=== PATIENT | female | born 1955 | race Caucasian/White ===

== ENCOUNTER 2018-07-23 11:29 | Emergency (ER) | payer OTHER ==
--- NOTE | 2018-07-23 12:18 | ED ---
HPI Chest Pain - HPI Summary HPI Summary: Patient is a 62 y/o F presenting to ED with complaints of chest pain, dizziness , and left arm pain since this morning. Gracie, patient's friend, is in the room. Chest pain is described as a fullness. She states that she will get this sensation when she drinks caffeine. Patient states that she has not had caffeine in 1.5 years, but has been drinking tea intermittently. She notes that she had "the wrong type of caffeine" yesterday morning and had an episode of chest pain. She states that her friend recommended green tea to her and she decided to try it. Sxs of chest pain, dizziness began afterward, yesterday morning, at 0900, lasted until 2200. This resolved by itself. Patient does note that she took melatonin last night to sleep. This morning, she states that she had mint tea (without caffeine), began to have chest pain once more, but this time with dizziness that she describes as feeling near syncopal and right arm pain. However, she notes that muscular right arm pain shifted from right arm to left arm. She states that she did some snow shoveling a few days ago with her right arm especially, but the right arm pain didn't start until 2 days after the shoeveling. With the left arm pain, and the chest pain, pt became concerned and presented to the ED. In the room, she rates pain at 7-8/10 originally, currently has lessened to 3/10. No medications taken [employer]. Patient denies fever, SOB, cough. She notes that 10/07/11, she had an abnormal EKG, and Dr. Mckeon carried out nondiagnositc chemical stress test as she was pre-op hip surgery. (Report reviewed in [facility] only. Dr. Mckeon's office records not available to me via [facility] EMR). She claims that she was told that results were ambiguous. No Hx of blood clots. States she has had some right calf pain intermittently over the past few days but none now. No Hx of HTN, diabetes, HLD , thyroid problems. PSHx of hip surgery. Patient denies home medications. FMHx of CA in mother. She states that she has never smoked cigarettes. Dr. Galeas is PCP. On triage, pain is rated 2/10, nothing is noted to aggravate/alleviate Sx. Home medications and allergies are reviewed. Vitals are pulse 67, O2 100, BP measures were 117/74, 86/64, and 116/64. Home Medications NK [No Home Medications Reported] 07/23/18 [History Confirmed 07/23/18] Allergies Allergy/AdvReac Type Severity Reaction Status Date / Time No Known Allergies Allergy Verified 07/23/18 11:33 - History of Current Complaint Chief Complaint: EDChestPainROMI Time Seen by Provider: 07/23/18 11:50 Hx Obtained From: Patient, Other: - friend Gracie is in the room with pt. Onset/Duration: Started Hours Ago - 2nd episode onset this morning, Started Days Ago - first episode yesterday, Atraumatic, Still Present Timing: Intermittent - first episode from 0900 to 2200, second episode started this morning; right calf pain intermittently over the past few days but none now. Right arm pain for a few days, with snow shoveling a few days before that. Left arm pain started with chest pain today., Lasting Hours - first episode from 0900 to 2200, second episode of chest pain this morning; left arm pain since this morning, Lasting Days - right calf pain intermittently over the past few days, right arm pain Initial Severity: Severe - 7-8/10 initially Current Severity: Mild - 3/10 in room Pain Intensity: 3 Pain Scale Used: 0-10 Numeric - 3/10 Chest Pain Location: Mid Sternal, Left Anterior Chest Pain Radiates: Yes Chest Pain Radiates To:: Arm - left arm Character: Other: - fullness Aggravating Factor(s): Nothing Alleviating Factor(s): Nothing Associated Signs and Symptoms: Positive: Chest Pain, Dizziness - near syncopal, Calf Pain/Swelling - right calf pain intermittently over the past few days, Other: - POSITIVE - RIGHT ARM PAIN THAT HAS MOSTLY RESOLVED, LEFT ARM PAIN. Negative: Shortness of Breath, Fever, Cough, Productive Cough, Nonproductive Cough - Allergy/Home Medications Allergies/Adverse Reactions: Allergies Allergy/AdvReac Type Severity Reaction Status Date / Time No Known Allergies Allergy Verified 07/23/18 11:33 Home Medications: Home Medications NK [No Home Medications Reported] 07/23/18 [History Confirmed 07/23/18] PMH/Surg Hx/FS Hx/Imm Hx Previously Healthy: Yes Endocrine/Hematology History: Denies: Hx Diabetes, Hx Thyroid Disease Cardiovascular History: Denies: Hx Hypercholesterolemia, Hx Hypertension Sensory History: Denies: Hx Legally Blind, Hx Deafness Opthamlomology History: Denies: Hx Legally Blind EENT History: Denies: Hx Deafness - Surgical History Surgery Procedure, Year, and Place: hip surgery Infectious Disease History: No Infectious Disease History: Denies: Traveled Outside the [place] in Last 30 Days - Family History Known Family History: Positive: Cardiac Disease - father and brothers with prolapsed mitral value , Other - CA in mother - Social History Occupation: Employed Full-time Alcohol Use: Occasionally Substance Use Type: Reports: None Smoking Status (MU): Never Smoked Tobacco Review of Systems Negative: Fever Positive: Chest Pain Negative: Shortness Of Breath, Cough Gastrointestinal: Negative Positive: no symptoms reported Positive: Other - POSITIVE - RIGHT CALF PAIN, RIGHT ARM PAIN SINCE RESOLVED, LEFT ARM PAIN Skin: Negative Neurological: Other - POSITIVE - DIZZINESS CHARACTERIZED NEAR SYNCOPAL Psychological: Normal All Other Systems Reviewed And Are Negative: Yes Physical Exam - Summary Physical Exam Summary: Appearance: Well-appearing, mild pain distress, well-nourished Skin: Warm, color reflects adequate perfusion, dry Head: Normal Head/Face inspection, atraumatic Eyes: Conjunctiva clear ENT: Normal inspection Neck: Supple, no nodes, no JVD Respiratory: Lungs clear, normal breath sounds, no respiratory distress Cardio: RRR, No murmur, pulses normal, brisk capillary refill, no murmur, rub or gallop Abdomen: Soft, nontender, nondistended, no masses Bowel sounds: Present Musculoskeletal: Strength Intact/ROM intact, no calf tenderness, no edema. Right and left arms with normal exams. No swelling, redness. Pain is not reproducible on palpation. Distal pusles, sensation intact. Psychological: Normal Neuro: Alert, muscle tone normal, no focal deficit Triage Information Reviewed: Yes Vital Signs On Initial Exam: Initial Vitals Temp Pulse Resp BP Pulse Ox 97.9 F 68 16 125/88 100 07/23/18 11:30 07/23/18 11:30 07/23/18 11:30 07/23/18 11:30 07/23/18 11:30 Vital Signs Reviewed: Yes Diagnostics - Vital Signs Vital Signs Temp Pulse Resp BP Pulse Ox 01/24/19 11:53 96 07/23/18 11:52 64 20 117/74 96 07/23/18 11:43 62 22 99 07/23/18 11:30 97.9 F 68 16 125/88 100 - Laboratory Result Diagrams: 07/23/18 12:14 07/23/18 12:14 Lab Statement: Any lab studies that have been ordered have been reviewed, and results considered in the medical decision making process. - Radiology CXR Radiology Interpretation Completed By: Radiologist Summary of Radiographic Findings: CXR IMPRESSION: NO ACTIVE CARDIOPULMONARY DISEASE. THIS REPORT WAS REVIEWED BY ED PHYSICIAN. - CT CTA CHEST CT Interpretation Completed By: Radiologist Summary of CT Findings: CTA CHEST IMPRESSION: NO PULMONARY ARTERIAL FILLING DEFECT TO SUGGEST PULMONARY EMBOLISM. THIS REPORT WAS REVIEWED BY ED PHYSICIAN. - EKG 1210 Cardiac Rate: NL - rate of 61 BPM EKG Rhythm: Sinus Rhythm ST Segment: Non-Specific Ectopy: None EKG Comparison: Other - no priors to compare with. Summary of EKG Findings: EKG at 1210 reveals NSR with rate of 61 BPM, nml AVIVCT , nml QTc, left axis (-21). No acute changes. No priors to compare. Re-Evaluation - Re-Evaluation First Eval Re-Evaluation Time: 14:13 Change: Unchanged Comment: Due to chest discomfort and elevated d-dimer of 277, CTA chest will be done. This was discussed with patient who is agreeable. Second Eval Re-Evaluation Time: 15:24 Change: Improved Comment: Results of CTA discussed, patient will be discharged to home, she is agreeable with this. Pt is pain free at this time. Chest Pain Course/Dx - Course Course Of Treatment: Patient is a 62 y/o F presenting to ED with complaints of chest pain, dizziness, and left arm pain that started this morning. Gracie, patient's friend, in the room. Chest pain is described as a fullness. She states that she will get this sensation when she drinks caffeine. Patient states that she has not had caffeine in 1.5 years, but has been drinking tea intermittently. She notes that she had "the wrong type of caffeine" yest morning and had an episode of chest pain. She states that her friend recommended green tea to her and she decided to try it. Sx onset afterwards yesterday morning at 0900, lasted until 2200. This resolved by itself, patient does note that she took melatonin. This morning, she states that she had mint tea without caffeine, and she began to have chest pain once more, but this time with dizziness that she describes as feeling near syncopal and right arm pain. However, she notes that muscular right arm pain shifted from right arm to left arm. In the room, she rates 7-8/10 originally, currently has lessened to 3/10. No medications taken [employer]. Patient denies fever, SOB, cough. She notes that , she had an abnormal EKG, Dr. Mckeon carried out nondiagnositc chemical stress test as she was pre-op hip surgery. She claims that she was told that results were ambiguous. No Hx of blood clots, she has had some right calf pain intermittently over the past few days. No Hx of HTN, diabetes, HLD, thyorid problems. PSHx of hip surgery. Patient denies home medications. FMHx of CA in mother. She states that she has never smoked cigarettes. On physical exam, mild pain distress is noted. Heart and lung exams normal. No calf tenderness, normal neurologic exam. Bilateral arm exams normal. EKG at 1210 reveals NSR with rate of 61 BPM, nml AVIVCT, nml QTc, left axis (-21). No acute changes. No priors to compare. CXR IMPRESSION: NO ACTIVE CARDIOPULMONARY DISEASE. Labs showed BUN/creatinine ratio 26.7, lactic acid 0.4, CK-MB 2.2, TSH 1.09. UA was negative. First trop was 0.01, second was 0.01. D-dimer was 277. CTA to be done. CTA CHEST IMPRESSION: NO PULMONARY ARTERIAL FILLING DEFECT TO SUGGEST PULMONARY EMBOLISM. Results of CTA discussed, patient will be discharged to home, she is agreeable with this. Pt is advised to have definite f/u with Dr. Galeas to determine if any further evaluation is necessary. - Chest Pain Differential Diagnosis/HQI/PQRI: Acute MN, ACS, Angina, Chest Wall, GI Disease, Lower Respiratory Infection, Pulmonary Embolism - Diagnoses Provider Diagnoses: Chest pain Discharge - Sign-Out/Discharge Documenting (check all that apply): Patient Departure - discharge - Discharge Plan Condition: Stable Disposition: HOME Patient Education Materials: Chest Pain (ED) Referrals: Haylee Galeas MD [Primary Care Provider] - 2 Days Additional Instructions: Your evaluation for chest discomfort did not show any significant abnormalities. You had two normal troponin levels, and you had a CTA of your chest that did not show a pulmonary embolus or any abnormalities. The lab results have printed with these discharge instructions. Have definite follow up with Dr. Galeas to determine if she wants to do any further evaluation. Return to the ER if you have any new or worsening symptoms. - Billing Disposition and Condition Condition: STABLE Disposition: Home - Attestation Statements Document Initiated by Karrie: Yes Documenting Scribe: RABIA RAMIREZ Provider For Whom Karrie is Documenting (Include Credential): SIMA EM MD Scribe Attestation: RABIA Riddle , scribed for SIMA EM MD on 07/27/18 at 2246. Scribe Documentation Reviewed: Yes Provider Attestation: The documentation as recorded by the RABIA haji accurately reflects the service I personally performed and the decisions made by me, SIMA EM MD Status of Scribe Document: Viewed
[2018-07-23 13:17] LABS: ABS Basophils 0 10^3/ul (0-0.2); ABS Eosinophils 0.1 10^3/ul (0-0.6); ABS Lymphocytes 1.6 10^3/ul (1.0-4.8); ABS Monocytes 0.3 10^3/ul (0-0.8); ABS Neutrophils 2.9 10^3/ul (1.5-7.7); ABS Nucleated RBC 0 10^3/ul; Eosinophil % 1.4 %; Hematocrit 42 % (35-47); Hemoglobin 13.8 g/dl (12.0-16.0); Lymphocyte % 32.2 %; Mean Corpuscular HGB Conc 33 g/dl (31-36); Mean Corpuscular Hemoglobin 31 pg (27-31); Mean Corpuscular Volume 94 fL (80-97); Nucleated Red Blood Cells % 0.1; Platelet Count 189 10^3/ul (150-450); Red Blood Count 4.44 10^6/ul (4.00-5.40); Red Cell Distribution Width 13 % (10.5-15); White Blood Count 4.8 10^3/ul (3.5-10.8)
[2018-07-23 13:33] LABS: Activated Partial Thrombo Time 30.2 seconds (26.0-36.3); INR 0.91 (0.77-1.02)
[2018-07-23 13:35] LABS: Albumin 3.9 g/dL (3.2-5.2); Albumin/Globulin Ratio 1.4 (1-3); BUN/Creatinine Ratio 26.7 (8-20); Calcium 9.7 mg/dL (8.6-10.3); EGFR African American 123.4 (>60); Globulin 2.7 g/dL (2-4); Magnesium 2.1 mg/dL (1.9-2.7); Potassium 3.9 mmol/L (3.5-5.0); Total Bilirubin 0.4 mg/dL (0.2-1.0); Total Protein 6.6 g/dL (6.4-8.9)
[2018-07-23 13:36] LABS: Troponin I 0.01 ng/mL (<0.04)
[2018-07-23 13:39] LABS: CKMB ng/mL 2.2 ng/mL (0.6-6.3)
[2018-07-23 13:56] LABS: TSH (Thyroid Stimulating Horm) 1.09 mcIU/mL (0.34-5.60)
[2018-07-23 14:45] LABS: Urine Appearance Clear; Urine Bilirubin Negative (Negative); Urine Blood Negative (Negative); Urine Color Straw; Urine Glucose Negative (Negative); Urine Ketones Negative (Negative); Urine Nitrite Negative (Negative); Urine Protein Negative (Negative); Urine Specific Gravity 1.003 (1.010-1.030); Urine Urobilinogen Negative (Negative)
[2018-07-23] MEDS ORDERED: Iohexol 350* (CONTRAST) 500 ML MDV IV ONE (14:49)
[2018-07-23 15:51] VITALS: BP 124/69
== END 2018-07-23 15:50 | disposition home or self-care (01) ==
LOC: ED 11:29
DX: R07.9 Chest pain, unspecified (principal)
CPT/HCPCS: 36415; 71045; 71275; 80053; 81003; 82550; 82553; 83605; 83735; 83880; 84443; 84484; 85025; 85379; 85610; 85730; 93005; 96374; 99283